=== PATIENT | female | born 1995 | race Caucasian/White ===

== ENCOUNTER 2021-05-30 08:53 | Emergency (ER) | payer OTHER ==
[~2021-05-30] VITALS: Ht 170.2 cm; Wt 89.3 kg
[2021-05-30 08:53] VITALS: BP 135/73
[2021-05-30] MEDS ORDERED: NAPROXEN 500 MG TABLET ONE (09:10)
[2021-05-30] MEDS ORDERED: diphenhydrAMINE HCL 25 MG CAPSULE PO ONE ×2 (09:10→09:15)
[2021-05-30] MEDS ORDERED: METOCLOPRAMIDE 10 MG TABLET ONE (09:11)
--- NOTE | 2021-05-30 09:14 | PHYS DOC ---
General Adult EDM: Chief Complaint: HEADACHE HPI: HPI: 25-year-old female presents with head injury and headache. 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 She was struck in the right side of her head with a toy that had a large wooden block on the hand. The child was swinging the block around on a string and it hit her in the head. Patient was not knocked unconscious. She has had no nausea, vomiting, dizziness. She does have a mild headache which she describes as a pressure sensation on the right side of her head. She has a small contusion at the edge of her right forehead. She was mostly sent here by her employer because they were worried about reinjury given the nature of her job with kids. The patient did try Tylenol for the headache has not helped. Review of Systems: Review of Systems: Constitutional: Denies fever or chills Eyes: Denies change in visual acuity HENT: Denies nasal congestion or sore throat Respiratory: Denies cough or shortness of breath Cardiovascular: Denies chest pain or edema GI: Denies abdominal pain, nausea, vomiting, bloody stools or diarrhea : Denies dysuria Musculoskeletal: Denies back pain or joint pain Integument: Denies rash Neurologic: Headache. Denies focal weakness or sensory changes Endocrine: Denies polyuria or polydipsia Lymphatic: Denies swollen glands Psychiatric: Denies depression or anxiety Allergies: Allergies: Allergies Coded Allergies Type Severity Reaction Last Updated Verified No Known Drug Allergies 05/30/21 No Physical Exam: PE: Constitutional: Well developed, well nourished, no acute distress, non-toxic appearance. [] HENT: Normocephalic, atraumatic, bilateral external ears normal, oropharynx moist, no oral exudates, nose normal. [] Eyes: PERRLA, EOMI, conjunctiva normal, no discharge. [] Neck: Normal range of motion, no tenderness, supple, no stridor. [] Cardiovascular: Heart rate regular rhythm, no murmur [] Lungs & Thorax: Bilateral breath sounds clear to auscultation [] Abdomen: Bowel sounds normal, soft, no tenderness, no masses, no pulsatile masses. [] Skin: Warm, dry, no erythema, no rash. 3 cm x 3 cm contusion right right forehead mildly tender. [] Back: No tenderness, no CVA tenderness. [] Extremities: No tenderness, no cyanosis, no clubbing, ROM intact, no edema. [] Neurologic: Alert and oriented X 3, normal motor function, normal sensory function, no focal deficits noted. [] Psychologic: Affect normal, judgement normal, mood normal. [] Current Patient Data: Vital Signs: Vital Signs Date Time Temp Pulse Resp B/P (MAP) Pulse Ox O2 Delivery O2 Flow Rate FiO2 05/30/21 08:53 98.4 98 14 135/73 (93) 100 Room Air EKG: EKG: [] Radiology/Procedures: Radiology/Procedures: [] Heart Score: C/O Chest Pain: N/A Risk Factors: Risk Factors: DM, Current or recent (<one month) smoker, HTN, HLP, family history of CAD, obesity. Risk Scores: Score 0 - 3: 2.5% MACE over next 6 weeks - Discharge Home Score 4 - 6: 20.3% MACE over next 6 weeks - Admit for Clinical Observation Score 7 - 10: 72.7% MACE over next 6 weeks - Early Invasive Strategies Course & Med Decision Making: Course & Med Decision Making Pertinent Labs and Imaging studies reviewed. (See chart for details) Based on the patient's age and history of present illness, an intracranial complication is unlikely. She does not seem to have symptoms of significance such as extreme headache, dizziness, vomiting. Head CT is not indicated and the patient does not believe it is necessary. She is not exhibiting signs of concussion. For her headache I will treat her with 500 mg naproxen, 10 mg of Reglan, 25 mg of Benadryl. She will go home and rest today. I will provide a note for work that she can return tomorrow. She is stable for discharge at this time. [] Dragon Disclaimer: Dragon Disclaimer: This electronic medical record was generated, in whole or in part, using a voice recognition dictation system. Departure Departure: Impression: Primary Impression: Headache Qualified Codes: G44.319 - Acute post-traumatic headache, not intractable Additional Impression: Head injury without concussion or intracranial hemorrhage Qualified Codes: S09.90XA - Unspecified injury of head, initial encounter Disposition: HOME / SELF CARE / HOMELESS Condition: STABLE Referrals: STANFORD MARTINEZ DO, M[facility] (PCP) Patient Instructions: General Headache Without Cause, [id number], Head Injury, Adult, [id number] GONZÁLEZ GILBERT DO May 30, 2021 09:14
[2021-05-30] MEDS ORDERED: NAPROXEN 500 MG TABLET PO ONE (09:15)
[2021-05-30] MEDS ORDERED: METOCLOPRAMIDE 10 MG TABLET PO ONE (09:15)
== END 2021-05-30 09:25 | disposition home or self-care (01) ==
LOC: ER 08:53
DX: S00.83XA Contusion of other part of head, initial encounter (principal); G44.319 Acute post-traumatic headache, not intractable; W22.8XXA Striking against or struck by other objects, initial encounter; Y93.89 Activity, other specified; Y92.89 Other specified places as the place of occurrence of the external cause; Y99.8 Other external cause status
CPT/HCPCS: 99284; Q0163